=== PATIENT | female | born 2000 | race Caucasian/White ===

== ENCOUNTER 2021-01-04 22:07 | Emergency (ER) | payer BC ==
[~2021-01-04] VITALS: Ht 160 cm; Wt 58.4 kg
[2021-01-04] MEDS ORDERED: DEXAMETHASONE 4 MG TABLET ONE (22:22)
[2021-01-04] MEDS ORDERED: EPINEPHRINE 1 MG/ML, 1ML ONE (22:22)
[2021-01-04] MEDS ORDERED: DEXAMETHASONE 4 MG TABLET PO ONE (22:30)
[2021-01-04] MEDS ORDERED: EPINEPHRINE 1 MG/ML, 1ML SQ ONE (22:30)
--- NOTE | 2021-01-04 22:32 | NUR ---
PT MEDICATED PER MAR TOLERATED WELL, MANAGING OWN SECRETIONS. NO NEEDS AT THIS TIME.
--- NOTE | 2021-01-04 22:49 | NUR ---
PT RESTING ON LUCI TALKING TO S.O, LALITON, NO NEEDS AT THIS TIME, VSS
--- NOTE | 2021-01-04 23:30 | NUR ---
PT REPORTS FEELING BETTER AND WANTS FOOD. ERP AWARE AT BEDSIDE FOR REASSESSMENT
[2021-01-04 23:52] VITALS: BP 116/72
--- NOTE | 2021-01-04 23:54 | NUR ---
Patient/Caregiver given discharge instructions and they have confirmed that they understand the instructions. Patient ambulatory with steady gait.
== END 2021-01-05 00:07 | disposition home or self-care (01) ==
LOC: ED 23:10
DX: R22.1 Localized swelling, mass and lump, neck (principal); T78.1XXA Other adverse food reactions, not elsewhere classified, initial encounter; R11.2 Nausea with vomiting, unspecified; R10.9 Unspecified abdominal pain; J45.909 Unspecified asthma, uncomplicated
CPT/HCPCS: 96372; 99283; J0171